=== PATIENT | female | born 1980 | race Caucasian/White ===

== ENCOUNTER → 2017-08-25 | Outpatient (CLI) | payer BC ==
[~2017-08-25] MED LIST: ATARAX25 MG PO; CRANBERRY1 CAP PO; ENALAPRIL10 MG PO; FLONASE0.05 MG/AC NS; LANAMINS1 CAP PO; OYSTER SHELL C500 M3 PO; PREDNISONE20 MG PO; SINGULAIR10 MG PO; SYNTHROID0.137 MG PO; VITAMIN D2000 IU PO
[2017-08-25 12:49] LABS: PTH INTACT 47.9 pg/mL (14.0-72.0); VITAMIN D, 25-HYDROXY 33.8 ng/mL (30-100)
== END | disposition home or self-care (01) ==
LOC: LAB 10:39
PROVIDERS: Nurse Practitioner Family
DX: E03.9 Hypothyroidism, unspecified (principal); R79.89 Other specified abnormal findings of blood chemistry

== ENCOUNTER → 2017-10-14 | Outpatient (CLI) | payer BC | LOC: LAB 16:58 | PROVIDERS: Nurse Practitioner Family | DX: Z11.2 Encounter for screening for other bacterial diseases (principal); W57.XXXD Bitten or stung by nonvenomous insect and other nonvenomous arthropods, subsequent encounter ==

== ENCOUNTER → 2018-08-19 | Outpatient (CLI) | payer BC ==
[~2018-08-19] MED LIST changes: +MOBIC15 MG PO; -SYNTHROID0.137 MG PO; +Synthroid,Lev100 MCG PO; +XANAX0.25 MG PO; +ZYRTEC10 MG PO
[2018-08-19 15:35] LABS: VITAMIN D, 25-HYDROXY 23.9 ng/mL (30-100)
== END | disposition home or self-care (01) ==
LOC: LAB 13:54
PROVIDERS: Nurse Practitioner Family
DX: E83.51 Hypocalcemia (principal)

== ENCOUNTER → 2018-10-01 | Outpatient (CLI) | payer BC | END | disposition home or self-care (01) | LOC: MRI 10:51 | DX: M54.16 Radiculopathy, lumbar region (principal); M51.27 Other intervertebral disc displacement, lumbosacral region; R93.89 Abnormal findings on diagnostic imaging of other specified body structures ==

== ENCOUNTER → 2018-10-26 | Outpatient (CLI) | payer BC ==
--- NOTE | ~2018-10-26 | ST ---
[place], [place] EXERCISE STRESS TEST REPORT NAME: BRIGITTE TOMLIN [facility] #: [id number] UNIT #: [id number] ROOM: DOCTOR: TACHO ALEGRE,TITO BIRTHDATE: [birth year] DOS: 10/26/2018 TREADMILL STRESS TEST REASON FOR TEST: Chest pain. PHYSICAL EXAMINATION: NECK: Supple. LUNGS: Clear anteriorly. HEART: Regular rhythm. PROTOCOL: Ernesto protocol. Total stress time 9 minutes and 22 seconds. Maximum heart rate 165, which is 91% target heart rate. Total METs 10.5 METs. Peak blood pressure 205/84. Ellis treadmill score +9. EKG: Resting EKG showed sinus rhythm. Stress EKG showed [address] depression in inferior leads and upsloping ST depression, baseline artifacts. CONCLUSION: Normal exercise treadmill stress test with no chest pain, no arrhythmias. The patient achieved 91% target heart rate, 10.5 METs and low risk Ellis treadmill score of +9. POST-STRESS COMPLICATIONS: None. TITO TITUS MD CM:STRESS:EXERCISE STRESS TEST REPORT [id number] TITO TITUS MD
--- NOTE | 2018-10-26 09:30 | NUR ---
INFORMED CONSENT SIGNED FOR STANDARD STRESS TEST WITH DR. TITUS. RESTING EKG NSR, HR 73, BP 134/90. COMPLETED 9:22 OF A STANDARD PAPA PROTOCOL COMPLETINE 3:00 STAGE II 2.5MPH/12% GRADE. PEAK HEART RATE OF 165 ACHIEVED WHICH IS 91% PREDICTED MAXIMUM AND A PEAK BP OF 204/84. TEST TERMINATED A PHYSICIANS DISCRETION. NONDIAGNOSTIC ST CHANGES NOTED WITH NO ARRHYTHMIAS. HAS A GOOD EXERCISE TOLERANCE. LAST RECOVERY HR 98, BP140/80. THIS IS A NEGATIVE STANDARD STRESS TEST. LEFT CARDIOLOGY IN STABLE CONDITION.
== END | disposition home or self-care (01) ==
LOC: CARD 02:13
DX: R07.89 Other chest pain (principal)

== ENCOUNTER → 2019-11-22 | Outpatient (CLI) | payer BC ==
[2019-11-22 09:56] LABS: POTASSIUM 3.6 mmol/L (3.5-5.1)
[2019-11-22 10:24] LABS: PTH INTACT 63.4 pg/mL (18.5-88.0); VITAMIN D, 25-HYDROXY 48.6 ng/mL (30-100)
== END | disposition home or self-care (01) ==
LOC: LAB 08:48
PROVIDERS: Nurse Practitioner Family
DX: I10 Essential (primary) hypertension (principal); E03.9 Hypothyroidism, unspecified; E55.9 Vitamin D deficiency, unspecified; F41.9 Anxiety disorder, unspecified; E87.6 Hypokalemia

== ENCOUNTER → 2019-11-23 | Outpatient (CLI) | payer BC | END | disposition home or self-care (01) | LOC: LAB 09:48 | DX: E83.51 Hypocalcemia (principal) ==

== ENCOUNTER → 2020-05-16 | Outpatient (CLI) | payer BC | END | disposition home or self-care (01) | LOC: COVID19 12:04 | PROVIDERS: ATTEND Nurse Practitioner Family | DX: Z20.822 Contact with and (suspected) exposure to COVID-19 (principal); H66.93 Otitis media, unspecified, bilateral; J02.9 Acute pharyngitis, unspecified; R09.81 Nasal congestion ==

== ENCOUNTER → 2021-12-11 | Outpatient (CLI) | payer MEDICAID ==
[2021-12-12 08:07] LABS: THYROID PEROXIDASE (TPO) AB 19 IU/mL (0-34)
[2021-12-12 22:06] LABS: THYROGLOBULIN ANTIBODY <1.0 IU/mL (0.0-0.9)
== END | disposition home or self-care (01) ==
LOC: LAB 10:24
PROVIDERS: ATTEND Internal Medicine Endocrinology, Diabetes & Metabolism
DX: E03.9 Hypothyroidism, unspecified (principal); Z85.850 Personal history of malignant neoplasm of thyroid

== ENCOUNTER → 2022-01-29 | Outpatient (CLI) | payer MEDICAID ==
[2022-01-29 10:28] LABS: BASO # 0.1 10*3/uL (0.0-0.1); BASO % 0.5 % (0.0-1.0); EOS # 0.6 10*3/uL (0.0-0.4); HEMATOCRIT 43.5 % (37.0-47.0); LYMPH # 1.3 10*3/uL (1.3-4.4); LYMPH % 13.8 % (27.0-41.0); MEAN CORPUSCULAR HGB 28.1 pg (27.0-31.0); MEAN CORPUSCULAR HGB CONC 32.6 g/dl (33.0-37.0); MEAN PLATELET VOLUME 10.5 fl (9.6-12.3); MONO # 0.6 10*3/uL (0.1-1.0); MONO % 6.2 % (3.0-9.0); NEUT # 6.8 10*3/uL (2.3-7.9); NEUT % 73.3 % (47.0-73.0); PLATELET COUNT AUTOMATED 378 10*3/uL (130-400); RED BLOOD COUNT 5.06 10*6/uL (4.10-5.10); RED CELL DISTRI WIDTH 13.3 % (0-14.5); WHITE BLOOD COUNT 9.2 10*3/uL (4.8-10.8)
[2022-01-29 10:46] LABS: ALKALINE PHOSPHATASE 126 U/L (45-117); BUN 9 mg/dl (7-24); CHLORIDE 106 mmol/L (98-107); CHOLESTEROL 178 mg/dL (<200); CREATININE 0.78 mg/dL (0.55-1.02); LDL CHOLESTEROL 109 mg/dL (9-159); POTASSIUM 4.4 mmol/L (3.5-5.1); SGOT/AST 8 IU/L (3-35); SGPT/ALT 16 U/L (12-78); SODIUM 139 mmol/L (136-145); TOTAL PROTEIN 7.6 gm/dL (6.4-8.2); TRIGLYCERIDES 88 mg/dl (<150)
== END ==
LOC: LAB 09:39
PROVIDERS: ATTEND Nurse Practitioner Family
DX: I10 Essential (primary) hypertension (principal); E03.9 Hypothyroidism, unspecified; E55.9 Vitamin D deficiency, unspecified

== ENCOUNTER → 2022-03-27 | Outpatient (CLI) | payer MEDICAID | END | disposition home or self-care (01) | LOC: RAD 12:56 | PROVIDERS: ATTEND Nurse Practitioner Family | DX: M25.561 Pain in right knee (principal) ==

== ENCOUNTER → 2022-05-27 | Outpatient (CLI) | payer OTHER | END | disposition home or self-care (01) | LOC: MRI 01:39 | PROVIDERS: ATTEND Nurse Practitioner Family | DX: S83.241A Other tear of medial meniscus, current injury, right knee, initial encounter (principal); S83.411A Sprain of medial collateral ligament of right knee, initial encounter; M25.461 Effusion, right knee; X58.XXXA Exposure to other specified factors, initial encounter; Y93.89 Activity, other specified; Y92.89 Other specified places as the place of occurrence of the external cause; Y99.8 Other external cause status ==

== ENCOUNTER → 2022-12-21 | Outpatient (CLI) | payer OTHER ==
[2022-12-21 09:32] LABS: FREE T4 1.29 ng/dl (0.89-1.76)
== END | disposition home or self-care (01) ==
LOC: LAB 08:17
PROVIDERS: ATTEND Internal Medicine Endocrinology, Diabetes & Metabolism
DX: E03.9 Hypothyroidism, unspecified (principal)

== ENCOUNTER → 2023-05-06 | Outpatient (CLI) | payer OTHER ==
[2023-05-06 10:49] LABS: BASO % 0.4 % (0.0-1.0); EOS # 0.3 10*3/uL (0.0-0.4); EOS % 4.4 % (1.0-4.0); HEMATOCRIT 42.2 % (37.0-47.0); LYMPH # 1.9 10*3/uL (1.3-4.4); LYMPH % 26.1 % (27.0-41.0); MEAN CELL VOLUME 84.9 fl (81.0-99.0); MEAN CORPUSCULAR HGB 27.2 pg (27.0-31.0); MEAN PLATELET VOLUME 10.2 fl (9.6-12.3); MONO # 0.5 10*3/uL (0.1-1.0); MONO % 7.2 % (3.0-9.0); NEUT # 4.4 10*3/uL (2.3-7.9); NEUT % 61.6 % (47.0-73.0); PLATELET COUNT AUTOMATED 358 10*3/uL (130-400); RED BLOOD COUNT 4.97 10*6/uL (4.10-5.10); RED CELL DISTRI WIDTH 13.8 % (0-14.5); WHITE BLOOD COUNT 7.1 10*3/uL (4.8-10.8)
[2023-05-06 11:12] LABS: ALKALINE PHOSPHATASE 123 U/L (46-116); BUN 8 mg/dl (9-23); CHLORIDE 106 mmol/L (98-107); CHOLESTEROL 211 mg/dL (<200); LDL CHOLESTEROL 138 mg/dL (9-159); POTASSIUM 4.5 mmol/L (3.4-5.1); SGPT/ALT 8 U/L (5-49); TOTAL PROTEIN 7.1 gm/dL (6.0-8.0); TRIGLYCERIDES 118 mg/dl (<150)
[2023-05-06 11:14] LABS: FREE T4 1.22 ng/dl (0.89-1.76)
== END | disposition home or self-care (01) ==
LOC: LAB 10:15
PROVIDERS: Nurse Practitioner Family; ATTEND Internal Medicine Endocrinology, Diabetes & Metabolism
DX: I10 Essential (primary) hypertension (principal); E03.9 Hypothyroidism, unspecified; R73.01 Impaired fasting glucose

== ENCOUNTER → 2023-07-02 | Outpatient (CLI) | payer OTHER | END | disposition home or self-care (01) | LOC: MAMMO 01:53 | PROVIDERS: ATTEND Nurse Practitioner Family | DX: Z12.31 Encounter for screening mammogram for malignant neoplasm of breast (principal); R92.333 Mammographic heterogeneous density, bilateral breasts; R92.30 Dense breasts, unspecified; N64.89 Other specified disorders of breast ==

== ENCOUNTER → 2023-08-27 | Outpatient (CLI) | payer OTHER | END | disposition home or self-care (01) | LOC: LAB 15:01 | PROVIDERS: ATTEND Nurse Practitioner Family | DX: Z01.419 Encounter for gynecological examination (general) (routine) without abnormal findings (principal) ==

== ENCOUNTER → 2023-08-30 | Outpatient (CLI) | payer OTHER | END | disposition home or self-care (01) | LOC: US 09:34 | PROVIDERS: ATTEND Nurse Practitioner Family | DX: I73.9 Peripheral vascular disease, unspecified (principal) ==

== ENCOUNTER → 2023-12-01 | Outpatient (CLI) | payer OTHER ==
[2023-12-01 09:53] LABS: BASO # 0.1 10*3/uL (0.0-0.1); BASO % 0.7 % (0.0-1.0); EOS # 0.5 10*3/uL (0.0-0.4); EOS % 6.5 % (1.0-4.0); HEMATOCRIT 39.6 % (37.0-47.0); LYMPH # 2.3 10*3/uL (1.3-4.4); LYMPH % 32.5 % (27.0-41.0); MEAN CELL VOLUME 85.7 fl (81.0-99.0); MEAN CORPUSCULAR HGB 27.9 pg (27.0-31.0); MEAN CORPUSCULAR HGB CONC 32.6 g/dl (33.0-37.0); MEAN PLATELET VOLUME 10.6 fl (9.6-12.3); MONO # 0.5 10*3/uL (0.1-1.0); MONO % 7.2 % (3.0-9.0); NEUT # 3.7 10*3/uL (2.3-7.9); NEUT % 52.8 % (47.0-73.0); PLATELET COUNT AUTOMATED 376 10*3/uL (130-400); RED BLOOD COUNT 4.62 10*6/uL (4.10-5.10); RED CELL DISTRI WIDTH 13.4 % (0-14.5); WHITE BLOOD COUNT 7.1 10*3/uL (4.8-10.8)
[2023-12-01 10:17] LABS: ALKALINE PHOSPHATASE 116 U/L (46-116); BUN 7 mg/dl (9-23); CHLORIDE 106 mmol/L (98-107); CHOLESTEROL 158 mg/dL (<200); LDL CHOLESTEROL 99 mg/dL (9-159); POTASSIUM 3.5 mmol/L (3.4-5.1); SGPT/ALT 11 U/L (5-49); TOTAL PROTEIN 6.8 gm/dL (6.0-8.0); TRIGLYCERIDES 96 mg/dl (<150)
[2023-12-01 10:18] LABS: FREE T4 1.4 ng/dl (0.89-1.76)
== END | disposition home or self-care (01) ==
LOC: LAB 08:51
PROVIDERS: Nurse Practitioner Family; ATTEND Internal Medicine Endocrinology, Diabetes & Metabolism
DX: Z12.31 Encounter for screening mammogram for malignant neoplasm of breast (principal); E03.9 Hypothyroidism, unspecified; E78.5 Hyperlipidemia, unspecified; I10 Essential (primary) hypertension; E55.9 Vitamin D deficiency, unspecified; E78.2 Mixed hyperlipidemia; Z85.850 Personal history of malignant neoplasm of thyroid

== ENCOUNTER → 2023-12-17 | Outpatient (CLI) | payer OTHER | END | disposition home or self-care (01) | LOC: LAB 10:33 | PROVIDERS: ATTEND Nurse Practitioner Family | DX: Z01.419 Encounter for gynecological examination (general) (routine) without abnormal findings (principal) ==

== ENCOUNTER → 2024-01-05 | Outpatient (CLI) | payer OTHER | END | disposition home or self-care (01) | LOC: LAB 17:27 | PROVIDERS: ATTEND Nurse Practitioner Family | DX: R09.81 Nasal congestion (principal); G57.30 Lesion of lateral popliteal nerve, unspecified lower limb; R05.8 Other specified cough; Z20.822 Contact with and (suspected) exposure to COVID-19 ==

== ENCOUNTER → 2024-01-30 | Outpatient (CLI) | payer OTHER | END | disposition home or self-care (01) | LOC: ORTHO 01:55 | PROVIDERS: ATTEND Orthopaedic Surgery | DX: M77.31 Calcaneal spur, right foot (principal); M79.671 Pain in right foot ==

== ENCOUNTER → 2024-06-01 | Outpatient (CLI) | payer OTHER ==
[2024-06-01 11:10] LABS: FREE T4 1.48 ng/dl (0.89-1.76)
== END | disposition home or self-care (01) ==
LOC: LAB 09:55
PROVIDERS: ATTEND Internal Medicine Endocrinology, Diabetes & Metabolism
DX: E03.9 Hypothyroidism, unspecified (principal); Z85.850 Personal history of malignant neoplasm of thyroid

== ENCOUNTER 2024-06-13 07:37 | Emergency (ER) | payer OTHER ==
[~2024-06-13] VITALS: Ht 175.2 cm; Wt 99.8 kg
[2024-06-13] MEDS ORDERED: CYTOMEL5 MCG PO (07:50)
[2024-06-13] MEDS ORDERED: CRANBERRY500 M3 PO (07:51)
[2024-06-13] MEDS ORDERED: Meclizine Hydrochloride 25 MG TAB PO ONE (08:00)
[2024-06-13] MEDS ORDERED: SODIUM CHLORIDE 0.9% 1,000 ML IV ONE (08:00)
[2024-06-13] MEDS ORDERED: Ondansetron Hydrochloride 4 MG/2 ML VIAL IV ONE (08:00)
[2024-06-13 08:16] LABS: BASO % 0.4 % (0.0-1.0); EOS # 0.3 10*3/uL (0.0-0.4); EOS % 3.7 % (1.0-4.0); HEMATOCRIT 41.4 % (37.0-47.0); MEAN CELL VOLUME 84.8 fl (81.0-99.0); MEAN CORPUSCULAR HGB CONC 31.9 g/dl (33.0-37.0); MEAN PLATELET VOLUME 10.3 fl (9.6-12.3); MONO # 0.6 10*3/uL (0.1-1.0); MONO % 7.6 % (3.0-9.0); NEUT # 4.9 10*3/uL (2.3-7.9); NEUT % 64.8 % (47.0-73.0); PLATELET COUNT AUTOMATED 326 10*3/uL (130-400); RED BLOOD COUNT 4.88 10*6/uL (4.10-5.10); RED CELL DISTRI WIDTH 14.1 % (0-14.5); WHITE BLOOD COUNT 7.6 10*3/uL (4.8-10.8)
[2024-06-13 08:34] LABS: BUN 15 mg/dl (9-23); CHLORIDE 105 mmol/L (98-107); POTASSIUM 3.4 mmol/L (3.4-5.1)
[2024-06-13] MEDS ORDERED: ANTIVERT25 M2 PO (08:57)
== END 2024-06-13 09:53 | disposition home or self-care (01) ==
LOC: ED 07:37
PROVIDERS: Emergency Medicine
DX: H81.10 Benign paroxysmal vertigo, unspecified ear (principal); R11.2 Nausea with vomiting, unspecified; I10 Essential (primary) hypertension; R51.9 Headache, unspecified; Z88.2 Allergy status to sulfonamides; Z88.8 Allergy status to other drugs, medicaments and biological substances; Z90.711 Acquired absence of uterus with remaining cervical stump; Z96.651 Presence of right artificial knee joint

== ENCOUNTER → 2024-11-30 | Outpatient (CLI) | payer SELFPAY ==
[~2024-11-30] MED LIST changes: +ANTIVERT25 M2 PO; +CRANBERRY500 M3 PO; +CYTOMEL5 MCG PO
[2024-11-30 11:22] LABS: FREE T4 1.05 ng/dl (0.89-1.76)
== END | disposition home or self-care (01) ==
LOC: LAB 10:09
PROVIDERS: ATTEND Internal Medicine Endocrinology, Diabetes & Metabolism
DX: E03.9 Hypothyroidism, unspecified (principal); Z85.850 Personal history of malignant neoplasm of thyroid

== ENCOUNTER → 2025-01-12 | Outpatient (CLI) | payer OTHER | END | disposition home or self-care (01) | LOC: MAMMO 00:25 | PROVIDERS: ATTEND Nurse Practitioner Family | DX: R92.333 Mammographic heterogeneous density, bilateral breasts (principal); N64.89 Other specified disorders of breast; R92.30 Dense breasts, unspecified ==